=== PATIENT | female | born 1985 | race American Indian/Alaskan Native ===

== ENCOUNTER 2017-07-13 04:57 | Emergency (ER) | payer MEDICAID ==
[2017-07-13 05:08] VITALS: BP 116/87
[2017-07-13 06:04] LABS: Basophils % (Auto) 0.7 % (0.0-1.8); Eosinophils % (Auto) 1.8 % (0.0-4.3); Hematocrit 39.6 % (30.3-42.9); Hemoglobin 13.4 gm/dl (10.1-14.3); Mean Corpuscular HGB Conc 34 % (30-34); Mean Corpuscular Hemoglobin 32 pg (28-32); Mean Corpuscular Volume 94 fl (79-97); Platelet Count 223 K/mm3 (140-440); Red Blood Count 4.24 M/mm3 (3.65-5.03); Red Cell Distribution Width 12.8 % (13.2-15.2); White Blood Count 11.7 K/mm3 (4.5-11.0)
[2017-07-13 06:37] LABS: Alanine Aminotransferase 10 units/L (7-56); Albumin 4.2 g/dL (3.9-5); Albumin/Globulin Ratio 1.5 %; Alkaline Phosphatase 51 units/L (35-129); Anion Gap 20 mmol/L; Blood Urea Nitrogen 6 mg/dL (7-17); Carbon Dioxide 21 mmol/L (22-30); Chloride 98.9 mmol/L (98-107); Glucose 128 mg/dL (65-100); Lipase 19 units/L (13-60); Potassium 4.3 mmol/L (3.6-5.0); Sodium 136 mmol/L (137-145)
[2017-07-13 06:54] LABS: Bilirubin,Urine NEG (Negative); Blood,Urine NEG (Negative); Ketones,Urine TR mg/dL (Negative); Leukocyte Esterase,Urine NEG (Negative); Mucus,Urine FEW /HPF; Nitrite,Urine NEG (Negative); Protein,Urine <15 mg/dL mg/dL (Negative); WBC,Urine < 1.0 /HPF (0.0-6.0)
--- NOTE | 2017-07-13 08:03 | Cat Scan Report ---
FINAL REPORT EXAM: CT ABDOMEN PELVIS WO CON HISTORY: pain TECHNIQUE: CT images obtained through the Abdomen and Pelvis without contrast. Transaxial,coronal and sagittal reformats are provided. PRIORS: None. FINDINGS: Imaged intrathoracic contents are unremarkable. Kidneys are normal in size, axis and position. No hydronephrosis or nephrolithiasis. The ureters are normal in course and caliber. No stones are seen within the urinary bladder. Suggested layering sludge within the gallbladder without pericholecystic edema or stranding identified. The liver, pancreas, spleen, and adrenal glands demonstrate a normal noncontrast appearance. The appendix is surgically absent. Sigmoid colonic short segment 6-7 centimeter area of focal wall thickening and adjacent stranding and edema on coronal image 45. No focal organizing extra colonic fluid collection. No kayla pneumoperitoneum. Multiple scattered adjacent reactive lymph nodes. Remaining hollow enteric organs are normal in course and caliber. The no obstruction. Aorta is normal in course and caliber. Superficial soft tissues are unremarkable. No acute or aggressive appearing skeletal findings. IMPRESSION: Short segment sigmoid acute diverticulitis versus colitis with focal wall thickening possibly representing abscess formation. No extra colonic focal fluid collection or pneumoperitoneum. Close clinical follow-up is suggested. Consider repeat CT with intravenous contrast for worsening/persistent symptoms despite treatment. Suggested layering sludge within the gallbladder without pericholecystic edema or stranding.
== END 2017-07-13 07:46 | disposition left against medical advice (07) ==
LOC: ED 04:57
DX: R10.9 Unspecified abdominal pain (principal); Z53.21 Procedure and treatment not carried out due to patient leaving prior to being seen by health care provider
CPT/HCPCS: 36415; 74176; 80053; 81001; 81025; 83690; 85025